=== PATIENT | male | born 1995 | race Caucasian/White ===

== ENCOUNTER 2023-10-11 00:38 | Emergency (ER) | payer OTHER, SELFPAY ==
[2023-10-11 00:40] VITALS: BP 145/80
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
[2023-10-11 01:06] VITALS: BMI 25.4
[2023-10-11 01:43] LABS: % Basophils 0.6 % (0-2); % Eosinophils 0.6 % (0-6); % Immature Granulocytes 0.1 % (0-0.5); % Lymphocytes 25.2 % (20.5-51.1); % Monocytes 5.5 % (1.7-9.3); Absolute Basophils 0.1 10^3/uL (0-0.2); Absolute Eosinophils 0.1 10^3/uL (0-0.7); Absolute Lymphocytes 2.5 10^3/uL (1.2-3.4); Absolute Monocytes 0.5 10^3/uL (0.1-0.6); Absolute Neutrophils 6.7 10^3/uL (1.4-6.5); Hematocrit 46.1 % (39.0-52.0); Hemoglobin 15.5 g/dL (13.0-18.0); Mean Corp Hgb Conc. 33.6 g/dL (33.0-37.0); Mean Corpuscular Hgb 29.2 pg (27.0-31.0); Mean Corpuscular Volume 86.8 fL (80.0-94.0); Mean Platelet Volume 9.5 fL (7.4-10.4); Nucleated Red Blood Cells % 0 % (-); Platelet Count 290 10^3/uL (130-400); Red Blood Cell Count 5.31 10^6/uL (4.70-6.10); Red Cell Dist. Width 12.7 % (11.5-14.5); White Blood Cell Count 9.9 10^3/uL (4.8-10.8)
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
[2023-10-11 01:54] LABS: Amphetamines Negative (Negative); Barbiturates Negative (Negative); Benzodiazepines Negative (Negative); Buprenorphine Negative (Negative); Cocaine Negative (Negative); Marijuana Positive (Negative); Methadone Negative (Negative); Methamphetamines Negative (Negative); Opiates Negative (Negative); Phencyclidine Negative (Negative); Tricyclic Antidepressants Negative (Negative)
[2023-10-11 02:13] LABS: Blood Urea Nitrogen 19 mg/dl (9-20); Calcium 9.8 mg/dl (8.4-10.2); Carbon Dioxide 26 mmol/L (22-30); Chloride 104 mmol/L (98-107); Estimated Creatinine Clearance 119 ml/min; Glucose 101 mg/dl (70-99); Potassium 4.3 mmol/L (3.5-5.1); Sodium 137 mmol/L (135-145); eGFR > 60.00
[2023-10-11 02:15] LABS: Alcohol None Detected
[2023-10-11 03:25] VITALS: BP 125/62
== END 2023-10-11 03:25 | disposition home or self-care (01) ==
LOC: EMR 00:38
PROVIDERS: Clinical Nurse Specialist Family Health; EMERGENCY PHYSICIAN Emergency Medicine; FAMILY PHYSICIAN Family Medicine
DX: F32.A Depression, unspecified (principal); F41.9 Anxiety disorder, unspecified; R51.9 Headache, unspecified; R07.89 Other chest pain; R03.0 Elevated blood-pressure reading, without diagnosis of hypertension; F12.90 Cannabis use, unspecified, uncomplicated; Z87.891 Personal history of nicotine dependence; Z87.820 Personal history of traumatic brain injury; Z91.048 Other nonmedicinal substance allergy status
CPT/HCPCS: 99283; 80048; 80306; 82077; 85025